=== PATIENT | male | born 1940 | race Caucasian/White ===

== ENCOUNTER → 2020-12-16 | Day surgery (SDC) | payer MEDICARE ==
[2020-12-11 14:30] LABS: BASOPHILS # (AUTO) 0.1 (0.0-0.1); BASOPHILS % 0.6 % (0.0-1.0); EOSINOPHILS # (AUTO) 0.7 (0.0-0.4); EOSINOPHILS % 6.5 % (0.0-6.0); LYMPHOCYTES # (AUTO) 3.5 (1.0-3.2); MEAN CORPUSCULAR HEMOGLOBIN 30.2 pg (28-32); MEAN CORPUSCULAR HGB CONC 32.4 g/dL (31-35); MEAN CORPUSCULAR VOLUME 93.4 fL (81-99); MONOCYTES # (AUTO) 1.1 (0.2-0.8); MONOCYTES % 9.9 % (4.4-11.3); NEUTROPHILS # (AUTO) 5.4 (2.1-6.9); NEUTROPHILS % 50.3 % (38.7-80.0); PLATELET COUNT 274 x10e3/uL (140-360); RED BLOOD COUNT 3.64 x10e6/uL (4.3-5.7)
[2020-12-11 14:39] LABS: INR 1.17; PROTHROMBIN TIME 15.7 seconds (11.9-14.5)
[2020-12-11 14:47] LABS: ALBUMIN 3.4 g/dL (3.5-5.0); ALBUMIN/GLOBULIN RATIO 0.9 (0.8-2.0); ANION GAP 14.1 mmol/L (8-16); CALCIUM 8.8 mg/dL (8.4-10.2); CREATININE, SERUM 1.51 mg/dL (0.72-1.25); POTASSIUM 4.1 mmol/L (3.5-5.1)
[~2020-12-16] VITALS: Ht 180.3 cm; Wt 98.4 kg
[2020-12-16] VITALS (13 sets, daily range): BP systolic 114–141; BP diastolic 46–66
[~2020-12-16] MED LIST: AMIODARONE HCL200 MG PO; ANORO ELLIPTA1 EACH INH; ASPIRIN 325 MG TAB ONE; ASPIRIN 325 MG TAB PO NR; ATORVASTATIN CA20 MG PO; BUMETANIDE1 MG PO; CLOPIDOGREL BISULFATE 75 MG TAB ONE; CLOPIDOGREL75 MG PO; DIPHENHYDRAMINE HCL INJ 50 MG/ML VIAL ONE; ELIQUIS5 MG PO; FENTANYL CITRATE/PF 100MCG/2 ML INJ ONE; HEPARIN 25,000 UNIT DRIP IV ONE; HEPARIN 25,000 UNIT/D5W 250ML 250 ML IV PRN; HEPARIN SOD (PORCINE) 1000 UNIT/ML 30ML ONE; HEPARIN SOD/SOD CHLORIDE 2,000 ML ONE; IOPAMIDOL 370 MG/ML 200 ML INFUS..BTL INJ ONE; LEVETIRACETAM750 MG PO; LIDOCAINE HCL 2% LOCAL 20 ML VIAL ONE; LISINOPRIL5 MG PO; METOPROLOL SUCC25 MG PO; MIDAZOLAM HCL 2 MG/2 ML VIAL ONE; MIRTAZAPINE15 MG PO; MULTI-VITAMIN1 EACH PO; NITROGLYCERIN/D5W 200 MCG/ML 250 ML ONE; SERTRALINE HCL50 MG PO; SODIUM CHLORIDE 0.9% 1000ML 1,000 ML ONE; TYLENOL PM PO; VENTOLIN HFA18 GM INH; VERAPAMIL HCL 2.5 MG/ML 2 ML VIAL ONE
== END | disposition short-term general hospital (02) ==
LOC: CATH LAB 07:07
PROVIDERS: ATTEND Internal Medicine Cardiovascular Disease
DX: I25.10 Atherosclerotic heart disease of native coronary artery without angina pectoris (principal); I48.0 Paroxysmal atrial fibrillation; I25.2 Old myocardial infarction; I11.0 Hypertensive heart disease with heart failure; I50.22 Chronic systolic (congestive) heart failure; E78.5 Hyperlipidemia, unspecified; E66.9 Obesity, unspecified; Z01.812 Encounter for preprocedural laboratory examination; Z20.822 Contact with and (suspected) exposure to COVID-19; Z79.02 Long term (current) use of antithrombotics/antiplatelets; Z68.30 Body mass index [BMI] 30.0-30.9, adult; Z82.49 Family history of ischemic heart disease and other diseases of the circulatory system
CPT/HCPCS: 93454; C9600; 36415; 80053; 85025; 85610; 92928; 92929; 99152; 99153; C1725; C1769; C1874; C1887; J1200; J1644; J2001; J2250; J3010; J7030; Q9967; U0002

== ENCOUNTER → 2021-01-01 | Day surgery (SDC) | payer MEDICARE ==
[2020-12-29 10:58] LABS: BASOPHILS # (AUTO) 0.1 (0.0-0.1); BASOPHILS % 0.8 % (0.0-1.0); EOSINOPHILS # (AUTO) 0.7 (0.0-0.4); EOSINOPHILS % 5.9 % (0.0-6.0); HEMATOCRIT 32.3 % (38.2-49.6); HEMOGLOBIN 10.3 g/dL (14.0-18.0); LYMPHOCYTES # (AUTO) 3.3 (1.0-3.2); LYMPHOCYTES % 28.4 % (18.0-39.1); MEAN CORPUSCULAR HEMOGLOBIN 29.7 pg (28-32); MEAN CORPUSCULAR HGB CONC 31.9 g/dL (31-35); MEAN CORPUSCULAR VOLUME 93.1 fL (81-99); MONOCYTES % 8.8 % (4.4-11.3); NEUTROPHILS # (AUTO) 6.3 (2.1-6.9); NEUTROPHILS % 54.5 % (38.7-80.0); PLATELET COUNT 322 x10e3/uL (140-360); RED BLOOD COUNT 3.47 x10e6/uL (4.3-5.7); RED CELL DISTRIBUTION WIDTH 14.2 % (11.7-14.4)
[2020-12-29 11:13] LABS: INR 1.15; PROTHROMBIN TIME 15.5 seconds (11.9-14.5)
[2020-12-29 11:24] LABS: ALBUMIN 3.8 g/dL (3.5-5.0); ANION GAP 15.2 mmol/L (8-16); CREATININE, SERUM 1.61 mg/dL (0.72-1.25); POTASSIUM 4.2 mmol/L (3.5-5.1)
[2021-01-01] VITALS (9 sets, daily range): BP systolic 103–139; BP diastolic 51–87
[~2021-01-01] VITALS: Ht 180.3 cm; Wt 96.6 kg
[~2021-01-01] MED LIST changes: +ANORO ELLIPTA1 EACH; -ASPIRIN 325 MG TAB PO NR; -CLOPIDOGREL BISULFATE 75 MG TAB ONE; -DIPHENHYDRAMINE HCL INJ 50 MG/ML VIAL ONE; -HEPARIN 25,000 UNIT DRIP IV ONE; -HEPARIN 25,000 UNIT/D5W 250ML 250 ML IV PRN; +TICAGRELOR 90 MG TABLET ONE
== END | disposition home or self-care (01) ==
LOC: CATH LAB 06:23
PROVIDERS: ATTEND Internal Medicine Cardiovascular Disease
DX: R94.39 Abnormal result of other cardiovascular function study (principal); I25.2 Old myocardial infarction; I11.0 Hypertensive heart disease with heart failure; I50.22 Chronic systolic (congestive) heart failure; E78.5 Hyperlipidemia, unspecified; E66.9 Obesity, unspecified; I48.0 Paroxysmal atrial fibrillation; Z01.812 Encounter for preprocedural laboratory examination; Z20.822 Contact with and (suspected) exposure to COVID-19; Z79.02 Long term (current) use of antithrombotics/antiplatelets; Z68.30 Body mass index [BMI] 30.0-30.9, adult; Z95.5 Presence of coronary angioplasty implant and graft; Z82.49 Family history of ischemic heart disease and other diseases of the circulatory system
CPT/HCPCS: 93458; C9600; 36415; 80053; 85025; 85610; 92928; 92929; 99152; 99153; C1725; C1769; C1874; C1887; J1644; J2001; J2250; J3010; J7030; Q9967; U0002